=== PATIENT | male | born 1995 | race Two or more races ===

== ENCOUNTER 2016-08-23 13:06 | Emergency (ER) | payer OTHER ==
[2016-08-23 13:20] VITALS: BP 130/57
[2016-08-23] MEDS ORDERED: DEXAMETHASONE SOD PHOS INJ 10 MG/1 ML VIAL IM ONE (15:20)
[2016-08-23] MEDS ORDERED: HYDROCODONE/ACETAMINOPHEN 5-325 MG TABLET PO ONE (15:22)
--- NOTE | 2016-08-23 15:38 | ER Document Report ---
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 Patient states that he was doing a lift when he started noticing the pain. He was evaluated 2 days ago at [facility] physician ED. He received a muscle relaxer and NSAIDs. He has not had any improvement in his symptoms. He began developing radicular symptoms down his right lateral thigh extending to the knee 1 day. Flexion and extension make symptoms worse. He has not noticed any decrease in muscular strength in his lower extremities. The pain in the back is described as sharp sensation in her legs is more of a tingling. Denies any fever, URI, sore throat, chest pain, shortness of breath, palpitations, abdominal pain, nausea, vomiting, diarrhea, constipation, dysuria, hematuria, tremors, erectile dysfunction, loss of control of bowel/bladder. He has no known drug allergies. He takes no daily p.o. medications. Insignificant past medical history. Immunizations up-to- date. No surgical history. TRAVEL OUTSIDE OF THE [place] IN LAST 30 DAYS: No - Related Data Allergies/Adverse Reactions: No Known Allergies Allergy (Verified 08/23/16 13:18) Past Medical History - Social History Smoking Status: Current Some Day Smoker Chew tobacco use (# tins/day): No Smoking Education Provided: Yes - <2mins Frequency of alcohol use: None Drug Abuse: None Family History: Reviewed & Not Pertinent Patient has suicidal ideation: No Patient has homicidal ideation: No Renal/ Medical History: Denies: Hx Peritoneal Dialysis Review of Systems - Review of Systems Notes: REVIEW OF SYSTEMS: CONSTITUTIONAL : Denies fever, chills, or sweats. Denies recent illness. EENT: Denies eye, ear, throat, or mouth pain or symptoms. Denies nasal or sinus congestion or discharge. Denies throat, tongue, or mouth swelling or difficulty swallowing. CARDIOVASCULAR: Denies chest pain. Denies palpitations or racing or irregular heart beat. Denies ankle edema. RESPIRATORY: Denies cough, cold, or chest congestion. Denies shortness of breath, difficulty breathing, or wheezing. GASTROINTESTINAL: Denies abdominal pain or distention. Denies nausea, vomiting , or diarrhea. Denies blood in vomitus, stools, or per rectum. Denies black, tarry stools. Denies constipation. GENITOURINARY: Denies difficulty urinating, painful urination, burning, frequency, blood in urine, or discharge. MUSCULOSKELETAL: see hpi SKIN: Denies rash, lesions or sores. NEUROLOGICAL: see hpi ALL OTHER SYSTEMS REVIEWED AND NEGATIVE. Dictation was performed using [employer] voice recognition software Physical Exam - Vital signs Vitals: Temp Pulse Resp BP Pulse Ox 97.7 F 66 20 130/57 H 99 08/23/16 13:18 08/23/16 13:18 08/23/16 13:18 08/23/16 13:18 08/23/16 13:18 Notes: PHYSICAL EXAMINATION: GENERAL: Well-appearing, well-nourished and in no acute distress. HEAD: Atraumatic, normocephalic. NECK: Normal range of motion, supple without lymphadenopathy LUNGS: Breath sounds clear to auscultation bilaterally and equal. No wheezes rales or rhonchi. HEART: Regular rate and rhythm without murmurs, rubs, gallops. Peripheral pulses all 2+. Cap refill <3sec throughout. ABDOMEN: Soft, nontender, nondistended abdomen. No guarding, no rebound. No masses appreciated. Normal bowel sounds present. No CVA tenderness bilaterally. No pulsatile mass. rectal sphincter tone intact. Musculoskeletal: FROM to passive/active to LE's b/l. Strength 5+/5. No foot drop b/l. Extremities: No cyanosis, clubbing, or edema b/l. Back: FROM to passive/active. Inc symptoms with flexion/extension. Strength in the back is 5+/5. + tenderness near L-5 +/- to midline and paraspinal/ facet. SLR positive to the rt leg. Reflexes 2+ patellar b/l, 2+ left achilles , and 0-1+ to the rt achilles. Sensation is intact to the LE's b/l and equal. No deformity, signs of trauma, or ecchymosis. NEUROLOGICAL: Cranial nerves grossly intact. Normal speech, normal gait. TOO, proprioception, clonus intact b/l. No babinski. PSYCH: Normal mood, normal affect. SKIN: Warm, Dry, normal turgor, no rashes or lesions noted. 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 L- spine XR negative for acute pathology. [employer] 5/325 given for pain control in the ED. Decadron 10mg IM also given. H&P suspicious for mild disc/nerve involvement. I will send him home with a short course of [employer] for pain PRN along with a medrol dose pack. He is to perform conservative measures (as in d/ c) for his symptoms otherwise. Recheck with his BAS this week. Consider consult with Orthopedics/Neurosurgery for further evaluation. Consider consult with Physical therapy as well. Thoroughly reviewed the case with the patient. At this time there are no red flag symptoms to indicate AAA, cauda equina, spinal abscess, discitis, severe disc herniation with neurological deficit, or ACS. Patient to return to the ED with any development of fever, worsening back pain, muscle weakness in the lower extremities, saddle anesthesia, erectile dysfunction, loss of control of bowel/bladder, abdominal pains, blood in the urine or stool, or any other worsening symptoms. Patient in agreement. Reviewed with Dr. Curry who is in agreement with treatment and plan. Discharged in stable condition. - Vital Signs Vital signs: Temp Pulse Resp BP Pulse Ox 97.7 F 66 16 130/57 H 99 08/23/16 13:18 08/23/16 13:18 08/23/16 14:40 08/23/16 13:18 08/23/16 13:18 Discharge - Discharge Clinical Impression: Radiculitis Low back pain Qualifiers: Chronicity: acute Back pain laterality: midline Sciatica presence: unspecified whether sciatica present Qualified Code(s): M54.5 - Low back pain Condition: Stable Disposition: HOME, SELF-CARE Instructions: Ice Packs ([facility]), Low Back Pain ([facility]), Oral Narcotic Medication ( [facility]), Warm Packs ([facility]) Additional Instructions: Rest, Ice Use splint as directed Tylenol/ibuprofen as needed Light stretches daily Strength exercises as able; avoid heavy lifting. Moist heat and massage may help F/u with your BAS this week for a recheck Consider consult(s) with Orthopedics/Neurosugery/physical therapy for ongoing/ worsening symptoms Return to the ED with any development of fever, worsening back pain, muscle weakness in the lower extremities, saddle anesthesia, erectile dysfunction, loss of control of bowel/bladder, abdominal pains, blood in the urine or stool, or any other worsening symptoms. Prescriptions: Hydrocodone/Acetaminophen [[employer] 5-325 mg Tablet] 1 tab PO BID PRN #6 tablet PRN Reason: Methylprednisolone [Medrol Dosepack (4 mg/Tab) 21 Tab/Dosepak] 4 mg PO ASDIR PRN #21 tab.ds.pk PRN Reason: Forms: Elevated Blood Pressure, Smoking Cessation Education
--- NOTE | 2016-08-23 16:31 | RADIOLOGY REPORT (SQ) ---
EXAM DESCRIPTION: L SPINE WHOLE COMPLETED DATE/TIME: 08/23/2016 4:23 pm REASON FOR STUDY: LBP with radiculitis rt side COMPARISON: None. NUMBER OF VIEWS: Five views including obliques. TECHNIQUE: AP, lateral, oblique, and sacral radiographic images acquired of the lumbar spine. LIMITATIONS: None. FINDINGS: MINERALIZATION: Normal. SEGMENTATION: Normal. No transitional anatomy. ALIGNMENT: Normal. VERTEBRAE: Maintained height. No fracture or worrisome bone lesion. DISCS: Preserved height. No significant osteophytes or end plate irregularity. POSTERIOR ELEMENTS: Pedicles and facets are intact. No pars defect or posterior arch defects. HARDWARE: None in the spine. PARASPINAL SOFT TISSUES: Normal. PELVIS: Intact as visualized. No fractures or worrisome bone lesions. SI joints intact. OTHER: No other significant finding. IMPRESSION: NORMAL 5 VIEW LUMBAR SPINE. TECHNICAL DOCUMENTATION: JOB ID: [id number] [employer]- All Rights Reserved
== END 2016-08-23 17:15 | disposition home or self-care (01) ==
LOC: ER 13:06
DX: M54.10 Radiculopathy, site unspecified (principal); M54.5 Low back pain; F17.200 Nicotine dependence, unspecified, uncomplicated
CPT/HCPCS: 99283; 96372; 72110; J1100